=== PATIENT | female | born 1950 | race Hispanic/Latino ===

== ENCOUNTER → 2017-05-29 | Day surgery (SDC) | payer MEDICARE ==
[2017-05-26 11:09] LABS: BASOPHILS % 0.6 % (0.0-1.0); EOSINOPHILS # (AUTO) 0.1 (0.0-0.4); EOSINOPHILS % 3.5 % (0.0-6.0); HEMATOCRIT 36.2 % (34.2-44.1); HEMOGLOBIN 11.7 g/dL (12.0-16.0); LYMPHOCYTES # (AUTO) 1.2 (1.0-3.2); LYMPHOCYTES % 38.2 % (18.0-39.1); MEAN CORPUSCULAR HGB CONC 32.3 g/dL (31-35); MEAN CORPUSCULAR VOLUME 83.4 fL (81-99); MONOCYTES # (AUTO) 0.3 (0.2-0.8); MONOCYTES % 10.7 % (4.4-11.3); NEUTROPHILS # (AUTO) 1.5 (2.1-6.9); NEUTROPHILS % 46.7 % (38.7-80.0); PLATELET COUNT 73 x10e3/uL (140-360); RED BLOOD COUNT 4.34 x10e6/uL (3.6-5.1); RED CELL DISTRIBUTION WIDTH 15.3 % (11.7-14.4)
[~2017-05-29] MED LIST: BENAZEPRIL-HCT1 EAC1 PO; BENAZEPRIL-HCT1 EAC2 PO; FENTANYL CITRATE/PF 100MCG/2 ML INJ ONE; GLIMEPIRIDE2 MG PO; LIDOCAINE HCL 2% LOCAL INJ 5 ML SDV VIAL INJ ONE; METFORMIN HCL500 MG PO; OMEPRAZOLE40 MG PO; PROPOFOL IV EMULSION 10 MG/ML 50 ML VIAL ONE; TRADJENTA5 MG PO; ZESTRIL20 MG PO
--- OUTSIDE RECORDS SUMMARY | 2017-05-29 06:10 | XMS REPORT ---
Author Author [facility] Address Unknown Phone Unavailable Care Team Providers [facility] Director Name Role Phone Unavailable Unavailable Problems This patient has no known problems. Allergies, Adverse Reactions, Alerts This patient has no known allergies or adverse reactions. Medications This patient has no known medications. Encounters Start Date/Time End Date/Time Encounter Type Admission Type Attending [facility] Facility Care Department Encounter ID 2016-12-19 12:48:06 2016-12-19 12:48:06 Emergency [facility] [id number] 2016-12-19 11:34:10 2016-12-19 11:34:10 Emergency [facility] [id number]
[2017-05-29 06:35] LABS: BASOPHILS % 1.2 % (0.0-1.0); EOSINOPHILS # (AUTO) 0.1 (0.0-0.4); HEMOGLOBIN 11.7 g/dL (12.0-16.0); LYMPHOCYTES % 39.8 % (18.0-39.1); MEAN CORPUSCULAR HEMOGLOBIN 27.3 pg (28-32); MEAN CORPUSCULAR HGB CONC 32.5 g/dL (31-35); MEAN CORPUSCULAR VOLUME 84.1 fL (81-99); MONOCYTES # (AUTO) 0.4 (0.2-0.8); MONOCYTES % 14.7 % (4.4-11.3); NEUTROPHILS % 39.9 % (38.7-80.0); PLATELET COUNT 92 x10e3/uL (140-360); RED BLOOD COUNT 4.28 x10e6/uL (3.6-5.1); RED CELL DISTRIBUTION WIDTH 15.5 % (11.7-14.4)
== END | disposition home or self-care (01) ==
LOC: OR 06:08
PROVIDERS: ATTEND Internal Medicine Gastroenterology
DX: K74.60 Unspecified cirrhosis of liver (principal); I85.10 Secondary esophageal varices without bleeding; K29.70 Gastritis, unspecified, without bleeding; K25.9 Gastric ulcer, unspecified as acute or chronic, without hemorrhage or perforation; K21.9 Gastro-esophageal reflux disease without esophagitis; K76.6 Portal hypertension; E66.3 Overweight; E11.9 Type 2 diabetes mellitus without complications; R00.1 Bradycardia, unspecified; I10 Essential (primary) hypertension; M19.90 Unspecified osteoarthritis, unspecified site; Z01.810 Encounter for preprocedural cardiovascular examination; Z01.812 Encounter for preprocedural laboratory examination; Z68.25 Body mass index [BMI] 25.0-25.9, adult; Z85.9 Personal history of malignant neoplasm, unspecified
CPT/HCPCS: 36415 ×2; 43244; 82948; 85025 ×2; 93005; J2001

== ENCOUNTER → 2017-11-06 | Day surgery (SDC) | payer MEDICARE ==
[2017-11-05 10:26] LABS: BASOPHILS % 0.6 % (0.0-1.0); EOSINOPHILS # (AUTO) 0.1 (0.0-0.4); EOSINOPHILS % 1.7 % (0.0-6.0); HEMATOCRIT 39.2 % (34.2-44.1); LYMPHOCYTES # (AUTO) 1.3 (1.0-3.2); LYMPHOCYTES % 28.7 % (18.0-39.1); MEAN CORPUSCULAR HEMOGLOBIN 30.2 pg (28-32); MEAN CORPUSCULAR HGB CONC 33.2 g/dL (31-35); MONOCYTES # (AUTO) 0.4 (0.2-0.8); MONOCYTES % 8.4 % (4.4-11.3); NEUTROPHILS # (AUTO) 2.8 (2.1-6.9); NEUTROPHILS % 60.4 % (38.7-80.0); PLATELET COUNT 76 x10e3/uL (140-360); RED BLOOD COUNT 4.31 x10e6/uL (3.6-5.1); RED CELL DISTRIBUTION WIDTH 13.1 % (11.7-14.4)
[2017-11-05 10:46] LABS: INR 1.16; PROTHROMBIN TIME 13.9 seconds (11.9-14.5)
[2017-11-05 10:47] LABS: PARTIAL THROMBOPLASTIN TIME 23.8 seconds (23.8-35.5)
[2017-11-05 10:58] LABS: ALANINE AMINOTRANSFERASE 39 IU/L (0-55); ALBUMIN 3.7 g/dL (3.5-5.0); ALBUMIN/GLOBULIN RATIO 1.1 (0.8-2.0); ALKALINE PHOSPHATASE 129 IU/L (40-150); ANION GAP 14.9 mmol/L (8-16); BLOOD UREA NITROGEN 21 mg/dL (7-26); BUN/CREATININE RATIO 28 (6-25); CALCIUM 9.5 mg/dL (8.4-10.2); CARBON DIOXIDE 27 mmol/L (22-29); CHLORIDE 104 mmol/L (98-107); CREATININE, SERUM 0.75 mg/dL (0.57-1.11); EST GLOMERULAR FILTRATION RATE > 60 ML/MIN (60-); GLUCOSE 193 mg/dL (74-118); POTASSIUM 3.9 mmol/L (3.5-5.1); SODIUM 142 mmol/L (136-145)
[~2017-11-06] MED LIST changes: +AMLODIPINE BESYL5 MG PO; -FENTANYL CITRATE/PF 100MCG/2 ML INJ ONE; -LIDOCAINE HCL 2% LOCAL INJ 5 ML SDV VIAL INJ ONE
[2017-11-06 08:45] VITALS: BP 133/62
== END | disposition home or self-care (01) ==
LOC: OR 06:37
PROVIDERS: ATTEND Internal Medicine Gastroenterology
DX: K74.60 Unspecified cirrhosis of liver (principal); I85.10 Secondary esophageal varices without bleeding; K29.70 Gastritis, unspecified, without bleeding; K21.9 Gastro-esophageal reflux disease without esophagitis; K76.6 Portal hypertension; Z71.3 Dietary counseling and surveillance; E66.3 Overweight; E11.9 Type 2 diabetes mellitus without complications; I10 Essential (primary) hypertension; R05 Cough; F41.9 Anxiety disorder, unspecified; Z01.810 Encounter for preprocedural cardiovascular examination; Z01.812 Encounter for preprocedural laboratory examination; Z79.84 Long term (current) use of oral hypoglycemic drugs; Z68.25 Body mass index [BMI] 25.0-25.9, adult; Z83.79 Family history of other diseases of the digestive system
CPT/HCPCS: 36415; 43235; 80053; 82948; 85025; 85610; 85730; 93005

== ENCOUNTER → 2018-07-23 | Day surgery (SDC) | payer MEDICARE ==
[2018-07-15 10:09] LABS: BASOPHILS % 0.7 % (0.0-1.0); EOSINOPHILS # (AUTO) 0.2 (0.0-0.4); EOSINOPHILS % 6.4 % (0.0-6.0); HEMATOCRIT 38.9 % (34.2-44.1); HEMOGLOBIN 13.2 g/dL (12.0-16.0); LYMPHOCYTES % 33.6 % (18.0-39.1); MEAN CORPUSCULAR HEMOGLOBIN 29.9 pg (28-32); MEAN CORPUSCULAR HGB CONC 33.9 g/dL (31-35); MEAN CORPUSCULAR VOLUME 88.2 fL (81-99); MONOCYTES # (AUTO) 0.3 (0.2-0.8); MONOCYTES % 9.5 % (4.4-11.3); NEUTROPHILS # (AUTO) 1.5 (2.1-6.9); NEUTROPHILS % 49.8 % (38.7-80.0); PLATELET COUNT 77 x10e3/uL (140-360); RED BLOOD COUNT 4.41 x10e6/uL (3.6-5.1); RED CELL DISTRIBUTION WIDTH 13.6 % (11.7-14.4)
[2018-07-15 10:24] LABS: INR 0.97; PROTHROMBIN TIME 13.4 seconds (11.9-14.5)
[2018-07-15 10:25] LABS: PARTIAL THROMBOPLASTIN TIME 23.4 seconds (23.8-35.5)
[2018-07-15 10:35] LABS: ALANINE AMINOTRANSFERASE 36 IU/L (0-55); ALBUMIN 3.3 g/dL (3.5-5.0); ALBUMIN/GLOBULIN RATIO 1.1 (0.8-2.0); ALKALINE PHOSPHATASE 131 IU/L (40-150); BLOOD UREA NITROGEN 13 mg/dL (7-26); BUN/CREATININE RATIO 19 (6-25); CALCIUM 9.4 mg/dL (8.4-10.2); CARBON DIOXIDE 27 mmol/L (22-29); CHLORIDE 101 mmol/L (98-107); CREATININE, SERUM 0.69 mg/dL (0.57-1.11); EST GLOMERULAR FILTRATION RATE > 60 ML/MIN (60-); GLUCOSE 251 mg/dL (74-118); SODIUM 134 mmol/L (136-145)
[~2018-07-23] MED LIST changes: +FENTANYL CITRATE/PF 100MCG/2 ML INJ ONE; +INSULIN REGULAR, HUMAN 100 UNIT/1 ML 3ML VIAL ONE; +PROPOFOL IV EMULSION 10 MG/ML 20 ML VIAL ONE; -PROPOFOL IV EMULSION 10 MG/ML 50 ML VIAL ONE
--- OUTSIDE RECORDS SUMMARY | 2018-07-23 06:18 | XMS REPORT | Encounter Summary ---
Author Organization Unknown Address [address] [place] [address] Phone [phone] Care Team Providers Care Slate Splitting Supervisor Name Role Phone Dr. Shubham Abbasi 3 [phone] Jeannie Dalton 62 [phone] Kwadwo Franco MD 107 [phone] Trevor Siddiqui MD 188 [phone] Reason for Visit None recorded. Instructions 1. Bilateral atherosclerosis of arteries of lower limbs US, doppler, arterial Discussion Note: None recorded. Patient educational handouts: No information available. Plan of Care Reminders Provider Appointments None recorded. Lab None recorded. Referral None recorded. Procedures None recorded. Surgeries None recorded. Imaging US, Doppler, Arterial 03/15/2018 Shubham Abbasi MD (Buddy) Medications Name Start Date amlodipine 10 mg tablet Take 1 tablet every day by oral route for 90 days. aspirin 81 mg tablet,delayed release Take 1 tablet every day by oral route for 90 days. benazepril 20 mg-hydrochlorothiazide 25 mg tablet Take 1 tablet every day by oral route in the morning for 90 days. clopidogrel 75 mg tablet Take 1 tablet every day by oral route for 90 days. Contour Next Test Strips use 1 strip for each blood glucose measurement flunisolide 25 mcg (0.025 %) nasal spray aplicar 2 esprays en cada fosa nasal dos veces cada luzmaria glimepiride 4 mg tablet Take 1 tablet every day by oral route for 90 days. metformin 500 mg tablet Take 2 tablets twice a day by oral route for 90 days. metoprolol succinate ER 25 mg tablet,extended release 24 hr Take 1 tablet every day by oral route at bedtime for 90 days. omeprazole 40 mg capsule,delayed release TOME STEFANO CAPSULA POR LA BOCA STEFANO VEZ AL LUZMARIA PARA LA ACIDEZ. Tradjenta 5 mg tablet Take 1 tablet every day by oral route for 90 days. Medications Administered None recorded. Vitals None recorded. Lab Results Date Name Specimen Result Interpretation Description Value Range Status Address 01/01/2018 Lipid Panel, Serum Normal Cholesterol, Total 160 mg/dL <200 mg/dL Final [facility] Lab: [address], [place] Normal HDL Cholesterol 74 mg/dL >50 mg/dL Final [facility]: [address], [place] Normal Triglycerides 77 mg/dL <150 mg/dL Final [facility] Lab: [address], [place] Normal LDL-cholesterol 70 mg/dL (calc) Final [facility] Lab: [address], [place] Normal Chol/hdlc Ratio 2.2 (calc) <5.0 (calc) Final [facility] Lab: [address] [facility], [place] Normal Non HDL Cholesterol 86 mg/dL (calc) <130 mg/dL (calc) Final [facility] Lab: [address] [facility], [place] 01/01/2018 Gamma-glutamyl Transferase (Ggt), Serum Normal Ggt 56 U/L 3-65 U/L Final [facility] Lab: [address] [facility], [place] 01/01/2018 CMP, Serum or Plasma High Glucose 159 mg/dL 65-99 mg/dL Final [facility] Lab: [address] [facility], [place] Normal Urea Nitrogen (BUN) 12 mg/dL 7-25 mg/dL Final [facility] Lab: [address] [facility], [place] Low Creatinine 0.48 mg/dL 0.50-0.99 mg/dL Final [facility]: [address], [place] Normal eGFR Non-afr. Fijian 102 mL/min/1.73m2 > or=60 mL/min/1.73m2 Final [facility] Lab: [address], [place] Normal eGFR 118 mL/min/1.73m2 > or=60 mL/min/1.73m2 Final [facility] Lab: [address], [place] High BUN/creatinine Ratio 25 (calc) 6-22 (calc) Final [facility] Lab: [address], [place] Normal Sodium 139 mmol/L 135-146 mmol/L Final [facility]: [address], [place] Normal Potassium 4.2 mmol/L 3.5-5.3 mmol/L Final [facility] Lab: [address] [facility], [place] Normal Chloride 104 mmol/L 98-110 mmol/L Final [facility] Lab: [address] [facility], [place] Normal Carbon Dioxide 28 mmol/L 20-32 mmol/L Final [facility] Lab: [address] [facility], [place] Normal Calcium 9.2 mg/dL 8.6-10.4 mg/dL Final [facility] Lab: [address] [facility], [place] Normal Protein, Total 6.8 g/dL 6.1-8.1 g/dL Final [facility] Lab: [address] [facility], [place] Normal Albumin 3.6 g/dL 3.6-5.1 g/dL Final [facility] Lab: [address] [facility], [place] Normal Globulin 3.2 g/dL (calc) 1.9-3.7 g/dL (calc) Final [facility] Lab: [address] [place] [address], [place] Normal Albumin/globulin Ratio 1.1 (calc) 1.0-2.5 (calc) Final [facility] Lab: [address] [place] [address], [place] Normal Bilirubin, Total 0.6 mg/dL 0.2-1.2 mg/dL Final [facility] Lab: [address] [facility], [place] Normal Alkaline Phosphatase 124 U/L 33-130 U/L [facility] Lab: [address] [place] [address], [place] Normal Ast 29 U/L 10-35 U/L Final [facility] Lab: [address] [place] [address], [place] High Alt 33 U/L 6-29 U/L [facility] Lab: [address] [place] [address], [place] 01/01/2018 Microalbumin:creatinine Ratio, Urine Normal Creatinine, Random Urine 39 mg/dL 20-275 mg/dL Final [facility] Lab: [address] [facility], [place] Normal Microalbumin 6.3 mg/dL see note: mg/dL Final [facility] Lab: [address] [place] [address], [place] High Microalbumin/creatinine Ratio, Random Urine 162 mcg/mg creat <30 mcg/mg creat Final [facility] Lab: [address] [place] [address], [place] 01/01/2018 CBC W/ Auto Diff Low White Blood Cell Count 3.3 thousand/uL 3.8-10.8 thousand/uL Final [facility] Lab: [address], [place] Normal Red Blood Cell Count 4.38 million/uL 3.80-5.10 million/uL Final [facility] Lab: [address], [place] Normal Hemoglobin 12.5 g/dL 11.7-15.5 g/dL Final [facility] Lab: [address], [place] Normal Hematocrit 38.3 % 35.0-45.0 % Final [facility] Lab: [address], [place] Normal Mcv 87.4 fL 80.0-100.0 fL Final [facility] Lab: [address], [place] Normal Mch 28.5 pg 27.0-33.0 pg Final [facility] Lab: [address], [place] Normal Mchc 32.6 g/dL 32.0-36.0 g/dL Final [facility] Lab: [address], [place] Normal Rdw 12.8 % 11.0-15.0 % Final [facility]: [address], [place] Low Platelet Count 94 thousand/uL 140-400 thousand/uL Final [facility] Lab: [address], [place] Normal Mpv 11.3 fL 7.5-12.5 fL Final [facility] Lab: [address], [place] Normal Absolute Neutrophils 1815 cells/uL 1510-9648 cells/uL Final [facility] Lab: [address], [place] Normal Absolute Lymphocytes 1079 cells/uL 850-3900 cells/uL Final [facility] Lab: [address], [place] Normal Absolute Monocytes 248 cells/uL 200-950 cells/uL Final [facility] Lab: [address], [place] Normal Absolute Eosinophils 119 cells/uL 15-500 cells/uL Final [facility] Lab: [address], [place] Normal Absolute Basophils 40 cells/uL 0-200 cells/uL Final [facility]: [address], [place] Normal Neutrophils 55 % Final [facility]: [address], [place] Normal Lymphocytes 32.7 % Final [facility] Lab: [address], [place] Normal Monocytes 7.5 % Final [facility] Lab: [address], [place] Normal Eosinophils 3.6 % Final [facility] Lab: [address], [place] Normal Basophils 1.2 % Final [facility] Lab: [address] [facility], [place] 01/01/2018 HbA1C (Hemoglobin a1C), Blood High Hemoglobin a1C 9.3 % of total HGB <5.7 % of total HGB Final [facility] Lab: [address], [place] EAG (mg/dL) 220 (calc) Final [facility]: [address], [place] EAG (mmol/L) 12.2 (calc) Final [facility] Lab: [address] [facility], [place] 01/01/2018 Fecal Occult Blood, Stool Fecal Globin by [employer]. (Medicare) Final [facility] Lab: [address] [facility], [place] 01/01/2018 Electrocardiogram Rate & Rhythm [facility]: [address] [address], [place] [facility]: [address] [address], [place] Interval [facility]: [address] [address], [place] Duration [facility]: [address] [place] [address], [place] Interval [facility]: [address] [address], [place] 01/01/2018 Ankle Brachial Index No observation recorded. [facility]: [address] [place] [address], [place] Allergies Code Code System Name Reaction Severity Status Onset NKDA Problems Name Status Onset Date Source Type 2 Diabetes Mellitus Active 06/27/2016 Essential Hypertension Active 06/27/2016 Diabetic on Insulin Active 08/09/2016 Diverticular Disease Active 09/20/2016 Arteriosclerosis of Abdominal Aorta Active 09/20/2016 Cirrhosis of Liver Active 12/17/2016 History of Malignant Neoplasm of Stomach Active 12/17/2016 Thrombocytopenic Disorder Active 04/04/2017 Esophageal Varices Active 05/12/2017 Procedures Date Name Performed by Cholecystectomy (Gall Bladder Removal) Information not available Appendectomy Information not available 01/01/2018 Ankle Brachial Index [facility] [id number] [facility] [address] [place] [address] ( (Work Place) 01/01/2018 Electrocardiogram [facility] [address] [facility] [address] [place] [address] (28 (Work Place) 01/07/2018 US, Doppler, Arterial Shubham Abbasi [address] [place], [place] [id number] (75 (Work Place) 01/01/2018 MAMMO, Screening, Bilateral [facility] (Imaging) [address] [place], [place] [id number] [phone] (Work Place) 01/01/2018 Bone Density [facility] (Imaging) [address] [place], [place] [id number] (Work Place) Vaccine List Vaccine Type influenza, high dose seasonal 12/16/20160.5 mL influenza, injectable, quadrivalent, preservative free 01/01/20180.5 mL pneumococcal conjugate PCV 13 12/16/20160.5 mL Social History Smoking Status Never Smoker Past Encounters 01/20/2018 Bilateral Atherosclerosis of Arteries of Lower Limbs; Essential Hypertension Giselle New, 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 01/07/2018 Bilateral Atherosclerosis of Arteries of Lower Limbs Shubham Abbasi MD: [id number] [address], Ph. 01/01/2018 Adult Health Examination; Body Mass Index 30+ - Obesity; Essential Hypertension; Esophageal Varices; Advance Directive Discussed with Patient; Depression Screening; Screening for Cardiovascular System Disease; Bilateral Atherosclerosis of Arteries of Lower Limbs; Influenza Vaccination; Type 2 Diabetes Mellitus; Diabetic on Insulin; Cirrhosis of Liver; Thrombocytopenic Disorder; Diverticular Disease; Arteriosclerosis of Abdominal Aorta; History of Malignant Neoplasm of Stomach; Screening for Malignant Neoplasm of Breast; Screening for Osteoporosis; Screening for Malignant Neoplasm of Colon Shubham Abbasi MD: [address] [address], Ph. History of Present Illness None recorded. Review of Systems None recorded. Physical Exam None recorded.
[2018-07-23 08:20] VITALS: BP 108/55
== END | disposition home or self-care (01) ==
LOC: OR 05:50
PROVIDERS: ATTEND Internal Medicine Gastroenterology
DX: I85.00 Esophageal varices without bleeding (principal); K29.70 Gastritis, unspecified, without bleeding; K74.69 Other cirrhosis of liver; R14.0 Abdominal distension (gaseous); E11.9 Type 2 diabetes mellitus without complications; Z68.24 Body mass index [BMI] 24.0-24.9, adult; Z71.3 Dietary counseling and surveillance; Z01.810 Encounter for preprocedural cardiovascular examination; Z01.812 Encounter for preprocedural laboratory examination; I10 Essential (primary) hypertension; Z79.84 Long term (current) use of oral hypoglycemic drugs
CPT/HCPCS: 36415 ×2; 43239; 80053; 82948; 85025; 85610; 85730; 88305; 88312; 93005; J2704

== ENCOUNTER → 2022-07-18 | Day surgery (SDC) | payer MEDICARE ==
[2022-07-11 12:12] LABS: BASOPHILS % 0.8 % (0.0-1.0); EOSINOPHILS # (AUTO) 0.1 (0.0-0.4); EOSINOPHILS % 2.3 % (0.0-6.0); HEMOGLOBIN 7.8 g/dL (12.0-16.0); LYMPHOCYTES # (AUTO) 0.6 (1.0-3.2); LYMPHOCYTES % 24.3 % (18.0-39.1); MEAN CORPUSCULAR HEMOGLOBIN 24.8 pg (28-32); MEAN CORPUSCULAR VOLUME 82.8 fL (81-99); MONOCYTES # (AUTO) 0.2 (0.2-0.8); MONOCYTES % 8.7 % (4.4-11.3); NEUTROPHILS # (AUTO) 1.7 (2.1-6.9); NEUTROPHILS % 63.5 % (38.7-80.0); PLATELET COUNT 84 x10e3/uL (140-360); RED BLOOD COUNT 3.14 x10e6/uL (3.6-5.1); RED CELL DISTRIBUTION WIDTH 17.1 % (11.7-14.4)
[2022-07-11 12:29] LABS: INR 1.08; PROTHROMBIN TIME 14.5 seconds (11.9-14.5)
[2022-07-11 12:30] LABS: PARTIAL THROMBOPLASTIN TIME 24.8 seconds (23.8-35.5)
[2022-07-11 12:37] LABS: ALBUMIN 3.4 g/dL (3.5-5.0); CREATININE, SERUM 1.24 mg/dL (0.57-1.11)
[~2022-07-18] MED LIST changes: +ASPIRIN81 MG PO; +DICYCLOMINE HCL10 MG PO; +ETOMIDATE 2 MG/ML 10 ML INJ IV ONE; +FAMOTIDINE20 MG PO; +FERROUS SULFAT325 MG PO; +FUROSEMIDE40 MG PO; -INSULIN REGULAR, HUMAN 100 UNIT/1 ML 3ML VIAL ONE; +LACTATED RINGER'S 1,000 ML ONE; +LANTUS 3ML100 UNITS/ SC; +LIDOCAINE HCL 2% LOCAL INJ 5 ML SDV VIAL INJ ONE; +PANTOPRAZOLE SO40 MG PO; +PLAVIX75 MG PO; +POVIDONE IODINE 0.05% 0.05 % ML PO ONE; +SPIRONOLACTONE25 MG PO; +ZESTRIL10 MG PO
[2022-07-18 08:00] VITALS: BP 163/64; PULSE 64; RESP 14; O2SAT 99
== END | disposition home or self-care (01) ==
LOC: OR 07:19
PROVIDERS: ATTEND Internal Medicine Gastroenterology
DX: K74.60 Unspecified cirrhosis of liver (principal); I85.10 Secondary esophageal varices without bleeding; K21.9 Gastro-esophageal reflux disease without esophagitis; K29.70 Gastritis, unspecified, without bleeding; K76.6 Portal hypertension; R19.7 Diarrhea, unspecified; I25.10 Atherosclerotic heart disease of native coronary artery without angina pectoris; I10 Essential (primary) hypertension; I25.2 Old myocardial infarction; E78.5 Hyperlipidemia, unspecified; E11.9 Type 2 diabetes mellitus without complications; M19.90 Unspecified osteoarthritis, unspecified site; Z01.810 Encounter for preprocedural cardiovascular examination; Z01.812 Encounter for preprocedural laboratory examination; Z79.02 Long term (current) use of antithrombotics/antiplatelets; Z79.82 Long term (current) use of aspirin; Z79.4 Long term (current) use of insulin; Z79.899 Other long term (current) drug therapy; Z68.31 Body mass index [BMI] 31.0-31.9, adult; Z85.42 Personal history of malignant neoplasm of other parts of uterus; Z95.5 Presence of coronary angioplasty implant and graft
CPT/HCPCS: 36415 ×2; 43235; 80053; 82948; 85025; 85610; 85730; 93005; J2001; J2704; J3010; J7121; 43239

== ENCOUNTER → 2023-03-11 | Outpatient (REF) | payer MEDICARE ==
[~2023-03-11] MED LIST changes: -ETOMIDATE 2 MG/ML 10 ML INJ IV ONE; -FENTANYL CITRATE/PF 100MCG/2 ML INJ ONE; -LACTATED RINGER'S 1,000 ML ONE; -LIDOCAINE HCL 2% LOCAL INJ 5 ML SDV VIAL INJ ONE; -POVIDONE IODINE 0.05% 0.05 % ML PO ONE; -PROPOFOL IV EMULSION 10 MG/ML 20 ML VIAL ONE
== END ==
LOC: US 09:07
PROVIDERS: ATTEND Physician Assistant Medical
DX: K74.69 Other cirrhosis of liver (principal)
CPT/HCPCS: 76700